=== PATIENT | female | born 1995 | race Caucasian/White ===

== ENCOUNTER 2016-08-09 12:04 | Emergency (ER) | payer OTHER ==
[~2016-08-09] VITALS: Ht 154.9 cm; Wt 67.8 kg
[2016-08-09 12:17] VITALS: TEMP 36.9; Ht 154.9 cm; Wt 67.8 kg
[2016-08-09] MEDS ORDERED: SODIUM CHLORIDE 0.9% 1000ML 1,000 ML IV STA (12:48)
--- NOTE | 2016-08-09 12:50 | EMERGENCY ROOM VISIT NOTE ---
History Report prepared by Lisset: Jose Juan Renteria Under the Supervision of: Dr. Bert Herman M.D. First contact with patient: 12:25 Chief Complaint: CONGESTION Stated Complaint: CHEST CONGESTION, COUGH, FEVER, NAUSEA Nursing Triage Summary: triage note: pt reports coughing, congestion, unable to breathe pt states was seen at [facility] last week treated for bronchitis tx with prednosione and inhaler pt states she is feeling worse" i have cut down on my smoking alot though" History of Present Illness The patient is a 20 year old female who presents to the Emergency Room with complaints of worsening chest congestion for the past week. The patient also complains of cough and shortness of breath. The cough is nonproductive. She has also experienced vomiting, which she feels is independent of her coughing spells. She does feel some pain in her chest, but only when she has coughing spells. She had a fever of 100 yesterday. The patient was seen by [facility] for her symptoms five days ago. She was started on a five day Prednisone 20mg course and an inhaler. She feels like her symptoms have worsened since then. The patient was not immunized for influenza. She did have her childhood immunizations. The patient is not on control. Her LNMP was about one month ago. She is a smoker. Source of History: patient Onset: one week Position: chest Quality: other (congested) Timing: worsening Associated Symptoms: + SOB, + cough, + fevers, + vomiting Review of Systems See HPI for pertinent positives & negatives. A total of 10 systems reviewed and were otherwise negative. Past Medical & Surgical Medical Problems: (1) Childhood asthma Family History No pertinent family history Social History Smoking Status: Current Every Day Smoker Housing Status: lives with family Current/Historical Medications Scheduled Acetaminophen (Tylenol), 1,000 MG PO PRN Azithromycin (Zithromax), 250 MG PO DAILY Prednisone (Prednisone Tab), 0 PO DAILY Allergies Coded Allergies: No Known Allergies (Unverified , 08/09/16) Physical Exam Vital Signs Date Time Temp Pulse Resp B/P Pulse Ox O2 Delivery O2 Flow Rate FiO2 08/09/16 15:39 88 20 122/75 97 08/09/16 15:04 64 14 99 Room Air 08/09/16 14:47 92 18 121/59 98 Room Air 08/09/16 13:37 82 08/09/16 13:35 72 18 100 08/09/16 12:17 36.9 97 18 104/72 97 Room Air 08/09/16 12:17 97 Room Air Physical Exam GENERAL: Patient is a healthy-appearing well-nourished HEAD: Normocephalic atraumatic EYES: Ocular movements intact pupils equal and react to light OROPHARYNX mucous membranes are moist no exudates present no erythema or edema present NECK: Supple no nuchal rigidity CHEST: Good equal expansion LUNGS: Clear and equal to auscultation CARDIAC: Normal S1 and S2 ABDOMEN: Soft nontender no guarding BACK: No CVA tenderness EXTREMITIES: No pain upon palpation normal muscle strength in all groups no clubbing cyanosis or edema NEURO: Patient is following commands is answering questions appropriately. Alert and oriented x3 Cranial Nerves 2-12 grossly intact Medical Decision & Procedures ER Provider Diagnostic Interpretation: X-ray results as stated below per interpretation by me and the radiologist: CHEST ONE VIEW PORTABLE CLINICAL HISTORY: Chest pain, cough and congestion. COMPARISON STUDY: No previous studies for comparison. FINDINGS: Lung volumes are normal. Lungs are clear. There is no pneumothorax or pleural effusion. Cardiac size is normal. Mediastinal contours are normal. There is no evidence of pulmonary edema. IMPRESSION: No acute cardiopulmonary findings. Electronically signed by: Sanket Wolfe M.D. 08/09/2016 1:31 PM Dictated Date/Time: 08/09/2016 1:29 PM Laboratory Results 08/09/16 13:04 Red Blood Count 5.02, Mean Corpuscular Volume 84.5, Mean Corpuscular Hemoglobin 29.7, Mean Corpuscular Hemoglobin Concent 35.1, Mean Platelet Volume 10.2, Neutrophils (%) (Auto) 67.1, Lymphocytes (%) (Auto) 22.5, Monocytes (%) (Auto) 9.1, Eosinophils (%) (Auto) 0.7, Basophils (%) (Auto) 0.2, Neutrophils # (Auto) 7.39, Lymphocytes # (Auto) 2.48, Monocytes # (Auto) 1.00, Eosinophils # (Auto) 0.08, Basophils # (Auto) 0.02 08/09/16 13:04 Test 08/09/16 12:52 08/09/16 12:58 08/09/16 13:04 08/09/16 13:05 Urine Color YELLOW Urine Appearance CLEAR (CLEAR) Urine pH 7.5 (4.5-7.5) Urine Specific Thurmond 1.026 (1.000-1.030) Urine Protein NEG (NEG) Urine Glucose (UA) NEG (NEG) Urine Ketones NEG (NEG) Urine Occult Blood NEG (NEG) Urine Nitrite NEG (NEG) Urine Bilirubin NEG (NEG) Urine Urobilinogen NEG (NEG) Urine Leukocyte Esterase NEG (NEG) Urine Test NEG (NEG) Bedside Hemoglobin 14.6 g/dl (12.0-16.0) Bedside Hematocrit 43 % (37-47) Bedside Sodium 139 mEq/L (135-144) Bedside Potassium 3.7 mEq/L (3.3-5.0) Bedside Chloride 100 mEq/L (101-112) Bedside Total CO2 28 mEq/l (24-31) Bedside Blood Urea Nitrogen 13 mg/dl (7-18) Bedside Creatinine 0.5 mg/dl Bedside Glucose (other) 85 mg/dl (70-99) Bedside Ionized Calcium (Brian) 1.14 mmol/l White Blood Count 11.01 K/uL (4.8-10.8) Red Blood Count 5.02 M/uL (4.2-5.4) Hemoglobin 14.9 g/dL (12.0-16.0) Hematocrit 42.4 % (37-47) Mean Corpuscular Volume 84.5 fL (80-100) Mean Corpuscular Hemoglobin 29.7 pg (25-34) Mean Corpuscular Hemoglobin Concent 35.1 g/dl (32-36) Platelet Count 213 K/uL (130-400) Mean Platelet Volume 10.2 fL (7.4-10.4) Neutrophils (%) (Auto) 67.1 % Lymphocytes (%) (Auto) 22.5 % Monocytes (%) (Auto) 9.1 % Eosinophils (%) (Auto) 0.7 % Basophils (%) (Auto) 0.2 % Neutrophils # (Auto) 7.39 K/uL (1.4-6.5) Lymphocytes # (Auto) 2.48 K/uL (1.2-3.4) Monocytes # (Auto) 1.00 K/uL (0.11-0.59) Eosinophils # (Auto) 0.08 K/uL (0-0.5) Basophils # (Auto) 0.02 K/uL (0-0.2) RDW Standard Deviation 39.7 fL (36.4-46.3) RDW Coefficient of Variation 13.1 % (11.5-14.5) Immature Granulocyte % (Auto) 0.4 % Immature Granulocyte # (Auto) 0.04 K/uL (0.00-0.02) Anion Gap 10.0 mmol/L (3-11) Est Creatinine Clear Calc Drug Dose 149.1 ml/min Estimated GFR () > 150.0 Estimated GFR (Non- 136.7 BUN/Creatinine Ratio 24.0 (10-20) Calcium Level 8.8 mg/dl (8.5-10.1) Total Bilirubin 0.8 mg/dl (0.2-1) Aspartate Amino Transf (AST/SGOT) 8 U/L (15-37) Alanine Aminotransferase (ALT/SGPT) 19 U/L (12-78) Alkaline Phosphatase 83 U/L (45-117) Total Creatine Kinase 23 U/L (26-192) Creatine Kinase MB < 0.5 ng/ml (0.5-3.6) Creatine Kinase MB Ratio (0-3.0) Troponin I < 0.015 ng/ml (0-0.045) Total Protein 7.0 gm/dl (6.4-8.2) Albumin 3.5 gm/dl (3.4-5.0) Globulin 3.5 gm/dl (2.5-4.0) Albumin/Globulin Ratio 1.0 (0.9-2) Human Chorionic Gonadotropin, Quant < 1 mIU/mL Influenza Type A (RT-PCR) Neg for Influ A (NEG) Influenza Type B (RT-PCR) Neg for Influ B (NEG) Test 08/09/16 13:08 Bedside D-Dimer 202 ng/mlFEU (0-450) Labs reviewed by ED physician. Medications Administered Medications (Trade) Dose Ordered Sig/Roger Route Start Time Stop Time Status Last Admin Dose Admin Sodium Chloride (Nss 1000ml) 1,000 ml @ 999 mls/hr Q1H1M STAT IV 08/09/16 12:48 08/09/16 13:48 DC 08/09/16 13:31 999 MLS/HR Azithromycin (Zithromax Tab) 500 mg NOW STAT PO 08/09/16 14:28 08/09/16 14:29 DC 08/09/16 14:42 500 MG Methylprednisolone Sodium Succinate (Solu-Medrol IV) 125 mg NOW STAT IV 08/09/16 14:29 08/09/16 14:30 DC 08/09/16 14:42 125 MG ED Course 1230: The patient was evaluated by my Nurse Practitioner student. 1242: Past medical records reviewed. The patient was evaluated in room A2. A complete history and physical examination was performed. 1248: NSS 1000 ml @ 999 mls/hr. 1428: Azithromycin 500 mg PO. 1429: Solu-Medrol 125 mg IV. 1520: Reassessed the patient. I discussed results and treatment plan with the patient. She verbalizes agreement and understanding. The patient is ready for discharge. Medical Decision This is a 20-year-old female who presents emergency department with persistent chest heaviness that has been ongoing for the past week. The patient has been on prednisone and has had no improvement of her symptoms. She has been taking her inhaler twice every 4 hours. She does not appear to be in any acute distress on examination here in emergency department. As the chest pressure has been ongoing for the past several days I would expect her troponin to be elevated if this were related to cardiac ischemia however it is not. In addition the patient has a normal d-dimer. Her chest x-ray does not show any evidence of pneumonia. The patient was given an hour-long breathing treatment in the emergency department and given Solu-Medrol. She had not taken her prednisone dose today. I'm going to continue the patient on a prednisone taper as well as trial her on azithromycin area and she is to follow-up with her primary care physician. Patient was in agreement with the treatment plan. Impression Primary Impression: Bronchitis Scribe Attestation The scribe's documentation has been prepared under my direction and personally reviewed by me in its entirety. I confirm that the note above accurately reflects all work, treatment, procedures, and medical decision making performed by me. Departure Information Dispostion Home / Self-Care Prescriptions Azithromycin (ZITHROMAX) 250 Mg Tab 250 MG PO DAILY, #4 TAB Prov: Bert Herman MD 08/09/16 Prednisone (Prednisone Tab) 20 Mg Tab 0 PO DAILY, #7 TAB 2 TABS DAILY FOR 2 DAYS, THEN 1 TAB DAILY FOR 2 DAYS, THEN 1/2 TAB DAILY FOR 2 DAYS. Prov: Bert Herman MD 08/09/16 Referrals Regan Mitchell M.D. (PCP) Forms HOME CARE DOCUMENTATION FORM, IMPORTANT VISIT INFORMATION, School Instructions, Work Instructions Patient Instructions ED Bronchitis Abx Tx, My [facility] Additional Instructions Use inhaler twice every 6 hours You have been examined and treated today on an emergency basis only. This is not a substitute for, or an effort to provide, complete comprehensive medical care. It is impossible to recognize and treat all injuries or illnesses in a single emergency department visit. It is therefore important that you follow up closely with Dr Mitchell. Call as soon as possible for an appointment. Thank you for your time and consideration. I look forward to speaking with you again soon. Please don't hesitate to call us if you have any questions.
[2016-08-09] MEDS ORDERED: ALBUT/IPRATROP 3MG/0.5MG NEB 3 ML VIAL INH ONE (13:00)
[2016-08-09] MEDS ORDERED: ACET-1256 PO (13:02)
[2016-08-09 13:20] LABS: BASO % 0.2 %; BASO ABS # 0.02 K/uL (0-0.2); COMPLETE YES; EOS % 0.7 %; HEMATOCRIT 42.4 % (37-47); IG% 0.4 %; LYMPH % 22.5 %; LYMPH ABS # 2.48 K/uL (1.2-3.4); MEAN CELL VOLUME 84.5 fL (80-100); MEAN CORPUSCULAR HEMOGLOBIN 29.7 pg (25-34); MEAN CORPUSCULAR HGB CONC 35.1 g/dl (32-36); MEAN PLATELET VOLUME 10.2 fL (7.4-10.4); MONO % 9.1 %; NEUT % 67.1 %; PLATELET COUNT 213 K/uL (130-400); RED BLOOD COUNT 5.02 M/uL (4.2-5.4); WHITE BLOOD COUNT 11.01 K/uL (4.8-10.8)
[2016-08-09 13:23] LABS: ISTAT CREATININE 0.5 mg/dl; ISTAT HEMOGLOBIN 14.6 g/dl (12.0-16.0); ISTAT IONIZED CALCIUM 1.14 mmol/l
[2016-08-09 13:26] LABS: URINE APPEARANCE CLEAR (CLEAR); URINE BILIRUBIN NEG (NEG); URINE COLOR YELLOW; URINE NITRITE NEG (NEG); URINE PH 7.5 (4.5-7.5); URINE SPECIFIC GRAVITY 1.026 (1.000-1.030); UROBILINOGEN NEG (NEG); ZZUR CULT IF INDIC CLEAN CATCH NO
[2016-08-09 13:32] LABS: REVIEW REQ? NO
[2016-08-09 13:33] LABS: MANUAL MICROSCOPIC REQUIRED? NO
--- NOTE | 2016-08-09 13:33 | DIAGNOSTIC IMAGING REPORT ---
CHEST ONE VIEW PORTABLE CLINICAL HISTORY: Chest pain, cough and congestion. COMPARISON STUDY: No previous studies for comparison. FINDINGS: Lung volumes are normal. Lungs are clear. There is no pneumothorax or pleural effusion. Cardiac size is normal. Mediastinal contours are normal. There is no evidence of pulmonary edema. IMPRESSION: No acute cardiopulmonary findings. Electronically signed by: Sanket Wolfe M.D. 08/09/2016 1:31 PM Dictated Date/Time: 08/09/2016 1:29 PM
[2016-08-09 13:37] LABS: ALT/SGPT 19 U/L (12-78); BLOOD UREA NITROGEN 13 mg/dl (7-18); CALCIUM 8.8 mg/dl (8.5-10.1); CARBON DIOXIDE 26 mmol/L (21-32); CHLORIDE 104 mmol/L (98-107); CREATININE 0.53 mg/dl (0.60-1.20); GLUCOSE 81 mg/dl (70-99); POTASSIUM 3.7 mmol/L (3.5-5.1); SODIUM 140 mmol/L (136-145)
[2016-08-09 13:42] LABS: ALKALINE PHOSPHATASE 83 U/L (45-117); AST/SGOT 8 U/L (15-37)
[2016-08-09] MEDS ORDERED: AZITHROMYCIN 250 MG TAB PO STA (14:28)
[2016-08-09] MEDS ORDERED: METHYLPREDNISOLONE 125 MG VIAL IV STA (14:29)
[2016-08-09 15:04] VITALS: PULSE 64; O2SAT 99
[2016-08-09] MEDS ORDERED: PRED20TA2 PO (15:14)
[2016-08-09] MEDS ORDERED: AZIT250T5 PO (15:14)
[2016-08-09 15:39] VITALS: BP 122/75; PULSE 88; O2SAT 97
[2016-08-09 16:38] LABS: INFLUENZA A PCR Neg for Influ A (NEG); INFLUENZA B PCR Neg for Influ B (NEG)
== END 2016-08-09 15:42 | disposition home or self-care (01) ==
LOC: C.EDB 12:06 → C.EDA 15:42
DX: J40 Bronchitis, not specified as acute or chronic (principal); F17.200 Nicotine dependence, unspecified, uncomplicated